=== PATIENT | male | born 1970 | race Caucasian/White ===

== ENCOUNTER → 2016-06-03 | Outpatient (CLI) | payer BC ==
[~2016-06-03] MED LIST: CHOLESTYRAMINE PO; CLARITIN 1010 MG/TAB PO; COUMADIN 5MG5 MG/TAB PO; COUMADIN5 M1 PO; FRAGMIN SC; FUROSEMIDE PO; FUROSEMIDE20 MG PO; HYDROXYURE500 MG/CAP PO; INDERAL 20MG20 MG PO; OMEPRAZOLE40 MG PO; POTASSIUM75 MG PO; PROFERRIN ES12 MG PO; PROPRANOLOL10 MG PO; SPIRONOLACTONE50 MG PO; TYLENOL 500MG500 MG PO; ZOFRAN ODT4 MG PO
== END ==
LOC: COL.RAD 07:30
DX: I82.0 Budd-Chiari syndrome (principal); K76.6 Portal hypertension

== ENCOUNTER 2016-06-16 01:33 | Emergency (ER) | payer BC ==
[~2016-06-16] VITALS: Ht 180.3 cm; Wt 84.1 kg
[~2016-06-16 01:33] MED LIST changes: -CLARITIN 1010 MG/TAB PO; -COUMADIN 5MG5 MG/TAB PO; -HYDROXYURE500 MG/CAP PO; -INDERAL 20MG20 MG PO; -TYLENOL 500MG500 MG PO; -ZOFRAN ODT4 MG PO
[2016-06-16 01:38] VITALS: TEMP 98.3
[2016-06-16 02:34] LABS: BASO % 0.3 % (0.0-2.0); EOS % 0.3 % (0-4.0); GRAN # 9.4 (1.4-6.5); GRAN % 88.6 % (42.2-75.2); HEMATOCRIT 50.3 % (42.0-52.0); HEMOGLOBIN 17.7 g/dl (13.5-18.0); LYMPH # 0.4 (1.2-3.4); MEAN CELL VOLUME 96 fl (80.0-100.0); MEAN CORPUSCULAR HEMOGLOBIN 34 pg (27.0-31.0); MEAN CORPUSCULAR HGB CONC 35 g/dl (33.0-37.0); MEAN PLATELET VOLUME 9.8 fl (7.4-10.4); MONO # 0.6 (0.1-0.6); PLATELET COUNT 318 K/mm3 (130-400); RED BLOOD COUNT 5.22 M/mm3 (4.20-5.60); WHITE BLOOD COUNT 10.7 K/mm3 (4.8-10.8)
[2016-06-16] MEDS ORDERED: COUMADIN 5MG5 MG/TAB PO (02:42)
[2016-06-16] MEDS ORDERED: INDERAL 20MG20 MG PO (02:42)
[2016-06-16] MEDS ORDERED: HYDROXYURE500 MG/CAP PO (02:43)
[2016-06-16] MEDS ORDERED: CLARITIN 1010 MG/TAB PO (02:43)
[2016-06-16] MEDS ORDERED: TYLENOL 500MG500 MG PO (02:44)
[2016-06-16 02:48] LABS: ADJUSTED CALCIUM 9.1 mg/dL (8.4-10.2); ALBUMIN 5.1 gm/dL (3.5-5.0); BILIRUBIN,TOTAL 2.9 mg/dL (0.0-1.0); CREATININE, serum 0.92 mg/dL (0.66-1.25); POTASSIUM 4.4 mmol/L (3.4-5.0); TOTAL PROTEIN 8.9 gm/dL (6.4-8.2)
[2016-06-16] MEDS ORDERED: ZOFRAN ODT4 MG PO (04:00)
[2016-06-16 04:18] VITALS: BP 122/83; PULSE 76
[2016-06-16 08:27] LABS: PROTHROMBIN TIME 37.6 SECONDS (9.7-12.8)
[2016-06-16 08:30] LABS: PARTIAL THROMBOPLASTIN TIME 57.6 SECONDS (26.0-37.0)
[2016-06-16 09:03] LABS: INR 3.3 (0.8-3.0)
== END 2016-06-16 04:25 | disposition home or self-care (01) ==
LOC: COL.ER 01:33
PROVIDERS: Emergency Medicine
DX: K52.9 Noninfective gastroenteritis and colitis, unspecified (principal); Z79.01 Long term (current) use of anticoagulants; Z90.2 Acquired absence of lung [part of]; Z86.718 Personal history of other venous thrombosis and embolism
CPT/HCPCS: J2765; J3010; J7030

== ENCOUNTER 2016-09-03 09:55 | Observation (INO) | payer BC ==
[~2016-09-03] VITALS: Ht 180.3 cm; Wt 84.1 kg
[~2016-09-03 09:55] MED LIST changes: +CLARITIN 1010 MG/TAB PO; +COUMADIN 5MG5 MG/TAB PO; +HYDROXYURE500 MG/CAP PO; +INDERAL 20MG20 MG PO; +TYLENOL 500MG500 MG PO; +ZOFRAN ODT4 MG PO
[2016-09-03 10:28] LABS: BASO # 0.1 (0.0-0.2); BASO % 1.3 % (0.0-2.0); EOS # 0.2 (0.0-0.7); EOS % 2.9 % (0-4.0); GRAN # 4.1 (1.4-6.5); GRAN % 73.3 % (42.2-75.2); HEMATOCRIT 43.9 % (42.0-52.0); HEMOGLOBIN 15.4 g/dl (13.5-18.0); LYMPH # 0.8 (1.2-3.4); MEAN CELL VOLUME 95 fl (80.0-100.0); MEAN CORPUSCULAR HEMOGLOBIN 33 pg (27.0-31.0); MEAN CORPUSCULAR HGB CONC 35 g/dl (33.0-37.0); MEAN PLATELET VOLUME 10.5 fl (7.4-10.4); MONO # 0.4 (0.1-0.6); MONO % 7.6 % (1.7-9.3); PLATELET COUNT 249 K/mm3 (130-400); RED BLOOD COUNT 4.64 M/mm3 (4.20-5.60); REDCELL DISTRIBUTION WIDTH-CV 14.5 % (11.5-14.5); WHITE BLOOD COUNT 5.6 K/mm3 (4.8-10.8)
[2016-09-03 10:49] LABS: ADJUSTED CALCIUM 8.6 mg/dL (8.4-10.2); ALANINE AMINOTRANSFERASE 39 U/L (21-72); ALBUMIN 4.4 gm/dL (3.5-5.0); ALKALINE PHOSPHATASE 61 U/L (50-136); ANION GAP 15 mmol/L (7-16); BILIRUBIN,TOTAL 1.5 mg/dL (0.0-1.0); BLOOD UREA NITROGEN 12 mg/dL (9-20); CALCIUM 8.9 mg/dL (8.4-10.2); CARBON DIOXIDE 22 mmol/L (22-30); CHLORIDE 104 mmol/L (98-107); CREATININE, serum 0.82 mg/dL (0.66-1.25); GLUCOSE 131 mg/dL (74-106); POTASSIUM 4.2 mmol/L (3.4-5.0); SODIUM 141 mmol/L (137-145); TOTAL PROTEIN 7.2 gm/dL (6.4-8.2)
[2016-09-03 10:56] LABS: INR 2.1 (0.8-3.0); PROTHROMBIN TIME 24.3 SECONDS (9.7-12.8)
[2016-09-03 10:58] LABS: PARTIAL THROMBOPLASTIN TIME 47.1 SECONDS (26.0-37.0)
[2016-09-03 11:00] LABS: TROPONIN-I < 0.012 ng/mL (0.000-0.034)
[2016-09-03 12:00] VITALS: BP 129/75; PULSE 87; TEMP 98.3
[2016-09-03 13:54] VITALS: PULSE 83; TEMP 98.3
[2016-09-03 16:00] VITALS: BP 136/98; PULSE 92; TEMP 98
== END 2016-09-03 19:54 | disposition left against medical advice (07) ==
LOC: COL.ER 09:55 → IMCU 11:08 → MEDICAL 11:08 → COL.ER 11:08 → IMCU 19:54
PROVIDERS: Emergency Medicine
DX: I48.0 Paroxysmal atrial fibrillation (principal); I47.1 Supraventricular tachycardia; I82.0 Budd-Chiari syndrome; D45 Polycythemia vera; Z79.01 Long term (current) use of anticoagulants; Z90.2 Acquired absence of lung [part of]; Z96.9 Presence of functional implant, unspecified
CPT/HCPCS: G0378; J7030; J7050

== ENCOUNTER → 2017-07-08 | Outpatient (CLI) | payer BC | LOC: COL.RAD 08:07 | DX: R16.1 Splenomegaly, not elsewhere classified (principal) ==

== ENCOUNTER → 2018-06-15 | Outpatient (CLI) | payer BC | LOC: COL.RAD 10:50 | DX: I82.0 Budd-Chiari syndrome (principal); R16.1 Splenomegaly, not elsewhere classified; Z90.49 Acquired absence of other specified parts of digestive tract; Z96.89 Presence of other specified functional implants ==

== ENCOUNTER → 2019-05-04 | Outpatient (CLI) | payer BC | LOC: COL.RAD 09:40 | DX: I82.0 Budd-Chiari syndrome (principal); K21.9 Gastro-esophageal reflux disease without esophagitis; R16.1 Splenomegaly, not elsewhere classified; Z90.49 Acquired absence of other specified parts of digestive tract ==

== ENCOUNTER 2020-02-11 04:34 | Emergency (ER) | payer BC ==
[~2020-02-11] VITALS: Ht 180.3 cm; Wt 86.4 kg
[2020-02-11 04:39] VITALS: TEMP 97.7
[2020-02-11 04:53] LABS: BASO # 0.1 (0.0-0.2); BASO % 1.3 % (0.0-2.0); EOS # 0.2 (0.0-0.7); GRAN # 4.1 (1.4-6.5); GRAN % 67.5 % (42.2-75.2); HEMATOCRIT 45.8 % (42.0-52.0); HEMOGLOBIN 16.2 g/dl (13.5-18.0); LYMPH % 16.9 % (20.0-51.0); MEAN CELL VOLUME 96 fl (80.0-100.0); MEAN CORPUSCULAR HEMOGLOBIN 34 pg (27.0-31.0); MEAN CORPUSCULAR HGB CONC 35 g/dl (33.0-37.0); MEAN PLATELET VOLUME 9.8 fl (7.4-10.4); MONO # 0.6 (0.1-0.6); MONO % 9.6 % (1.7-9.3); PLATELET COUNT 291 K/mm3 (130-400); RED BLOOD COUNT 4.76 M/mm3 (4.20-5.60); REDCELL DISTRIBUTION WIDTH-CV 14.3 % (11.5-14.5)
[2020-02-11 05:01] LABS: INR 1.9 (0.8-3.0)
[2020-02-11 05:03] LABS: ALANINE AMINOTRANSFERASE 39 U/L (4-49); ALBUMIN 4.8 gm/dL (3.5-5.0); ALKALINE PHOSPHATASE 86 U/L (50-136); ANION GAP 10 mmol/L (7-16); AST,SGOT 35 U/L (15-37); BILIRUBIN,TOTAL 1.1 mg/dL (0.0-1.0); BLOOD UREA NITROGEN 17 mg/dL (9-20); CALCIUM 9.2 mg/dL (8.4-10.2); CARBON DIOXIDE 27 mmol/L (22-30); CHLORIDE 104 mmol/L (98-107); CREATININE, serum 1.02 (0.66-1.25); GLUCOSE 117 mg/dL (74-106); MAGNESIUM 2.2 mg/dL (1.6-2.3); PARTIAL THROMBOPLASTIN TIME 51.4 SECONDS (26.0-37.0); POTASSIUM 3.9 mmol/L (3.4-5.0); SODIUM 141 mmol/L (137-145); TOTAL PROTEIN 7.8 gm/dL (6.4-8.2)
[2020-02-11] MEDS ORDERED: AMBIEN 10MG10 MG PO (05:03)
[2020-02-11] MEDS ORDERED: COUMADIN 6MG6 MG/TAB PO (05:04)
[2020-02-11 05:16] LABS: TROPONIN-I < 0.012 ng/mL (0.000-0.035)
[2020-02-11 06:21] LABS: PH 6 (5-8); SQUAMOUS EPITHELIAL None Seen /hpf; URINE APPEARANCE Clear; URINE BACTERIA None Seen /hpf; URINE BILIRUBIN Negative (NEGATIVE); URINE BLOOD Negative (NEGATIVE); URINE COLOR Yellow; URINE GLUCOSE Negative (NEGATIVE); URINE KETONE Negative (NEGATIVE); URINE LEUKOCYTE ESTERASE Negative (NEGATIVE); URINE NITRATE Negative (NEGATIVE); URINE PROTEIN(semi-quant) Negative (NEGATIVE); URINE RBC 0-2 /hpf; URINE WBC 0-2 /hpf
[2020-02-11 06:26] LABS: COLLECTION METHOD CLEAN CATCH
[2020-02-11] MEDS ORDERED: CARDIZEM CD 12120 MG PO (08:00)
[2020-02-11 08:32] VITALS: BP 122/91; PULSE 96
== END 2020-02-11 08:35 | disposition home or self-care (01) ==
LOC: COL.ER 04:34
PROVIDERS: Emergency Medicine
DX: I48.91 Unspecified atrial fibrillation (principal); Z86.79 Personal history of other diseases of the circulatory system; Z88.0 Allergy status to penicillin; Z79.01 Long term (current) use of anticoagulants; Z79.899 Other long term (current) drug therapy
CPT/HCPCS: J7030

== ENCOUNTER → 2020-05-21 | Outpatient (CLI) | payer BC ==
[~2020-05-21] MED LIST changes: +AMBIEN 10MG10 MG PO; +CARDIZEM CD 12120 MG PO; +COUMADIN 6MG6 MG/TAB PO
== END ==
LOC: COL.RAD 09:57
DX: R16.1 Splenomegaly, not elsewhere classified (principal); Z96.89 Presence of other specified functional implants

== ENCOUNTER → 2021-05-19 | Outpatient (CLI) | payer BC | LOC: COL.RAD 07:48 | DX: I82.0 Budd-Chiari syndrome (principal) ==

== ENCOUNTER → 2022-07-07 | Outpatient (CLI) | payer BC | LOC: COL.RAD 06:48 | DX: I82.0 Budd-Chiari syndrome (principal); K74.60 Unspecified cirrhosis of liver; R16.1 Splenomegaly, not elsewhere classified ==

== ENCOUNTER → 2023-06-17 | Outpatient (REF) | payer BC ==
[2023-06-17 13:13] LABS: BAND 6 % (0-10); BASOPHIL 2 % (0-2); EOSINOPHIL 5 % (0-4); LYMPHOCYTE 16 % (20.0-51.0); NEUTROPHILS 65 % (42.0-75.2); PLATELET ESTIMATE NORMAL (NORMAL)
== END ==
LOC: ZCOL.LAB 11:48
PROVIDERS: Family Medicine
DX: D47.1 Chronic myeloproliferative disease (principal)